=== PATIENT | male | born 1950 | race Caucasian/White ===

== ENCOUNTER 2017-02-02 13:59 | Emergency (ER) | payer BC ==
[2017-02-02] MEDS ORDERED: Adacel Vial IM ONE ×2 (14:23→14:26)
[2017-02-02] MEDS ORDERED: XYLOCAINE 1% HCL 20 ML MDV IJ ONE (14:23)
[2017-02-02] MEDS ORDERED: BACIGUENT PACKET TP ONE (14:23)
[2017-02-02] MEDS ORDERED: BACIGUENT PACKET ONE (14:26)
[2017-02-02] MEDS ORDERED: XYLOCAINE 1% HCL 20 ML MDV ONE (14:26)
--- NOTE | 2017-02-02 14:27 | ERPHSYRPT ---
- History of Present Illness Time Seen by Provider: 02/02/17 14:23 Source: patient Exam Limitations: no limitations Patient Subjective Stated Complaint: pt states he was working with a chop saw and lacerated left proximal 5th knuckle. Triage Nursing Assessment: pt pink, warm, dry. 3cm laceration noted to left proximal 5th knuckle. radial pulse strong. Physician History: 66-year-old white male arrives with a laceration to his left hand since just prior to arrival. Patient states he was using a chop saw and struck the dorsal surface of his left hand. He is not having any problems moving he has no sensory loss. Full range of motion left hand and fingers. Past medical history includes hypercholesterolemia, high blood pressure. Past surgical history includes orthopedic surgeries. Occurred: just prior to arrival Method of Injury: other (lacerated left hand with chop saw) Quality: sharpness Severity of Pain-Max: moderate Severity of Pain-Current: mild Extremities Pain Location: hand: left Modifying Factors: Improves With: nothing Associated Symptoms: none, other (laceration left hand) Allergies/Adverse Reactions: iodine Allergy (Mild, Verified 02/02/17 14:24) Hives Home Medications: Benazepril HCl 10 mg [Lotensin 10 MG] 1 tab PO DAILY 03/19/13 [History] Simvastatin 40 mg [Zocor 40 mg] 1 tab PO DAILY 03/19/13 [History] Aspirin 81 mg PO DAILY 01/19/15 [History] Amlodipine Besylate 5 mg [Norvasc 5 mg] 5 mg PO DAILY 01/21/15 [History] Ergocalciferol (Vitamin D2) [Vitamin D] 50,000 units PO DAILY 02/11/16 [History] Levothyroxine Sodium 50 Mcg [Synthroid 50 Mcg] 50 mcg PO DAILY 02/11/16 [ History] Tamsulosin HCl 0.4 mg [Flomax 0.4 MG] 0.4 mg PO DAILY 02/11/16 [History] Hx Tetanus, Diphtheria Vaccination/Date Given: Yes (unknown) Hx Influenza Vaccination/Date Given: No Hx Pneumococcal Vaccination/Date Given: No Immunizations Up to Date: Yes - Review of Systems Constitutional: No Fever, No Chills Eyes: No Symptoms Ears, Nose, & Throat: No Symptoms Respiratory: No Cough, No Dyspnea Cardiac: No Chest Pain, No Edema, No Syncope Abdominal/Gastrointestinal: No Abdominal Pain, No Nausea, No Vomiting, No Diarrhea Genitourinary Symptoms: No Dysuria Musculoskeletal: Other (laceration dorsal left hand) Skin: Other (laceration dorsal left hand) Neurological: No Dizziness, No Focal Weakness, No Sensory Changes Psychological: No Symptoms Endocrine: No Symptoms All Other Systems: Reviewed and Negative - Past Medical History Pertinent Past Medical History: Yes Neurological History: No Pertinent History ENT History: No Pertinent History Cardiac History: Hypertension Respiratory History: No Pertinent History Endocrine Medical History: Hypothyroidism Musculoskeletal History: No Pertinent History GI Medical History: No Pertinent History History: No Pertinent History Psycho-Social History: No Pertinent History Male Reproductive Disorders: No Pertinent History - Past Surgical History Past Surgical History: Yes Neuro Surgical History: No Pertinent History Cardiac: No Pertinent History Respiratory: No Pertinent History Gastrointestinal: Hernia Repair Genitourinary: No Pertinent History Musculoskeletal: Orthopedic Surgery Male Surgical History: No Pertinent History Other Surgical History: left knee(spouse not sure of procedure) yrs ago,Carpal tunnel release (spouse not sure which wrist) - Social History Smoking Status: Former smoker Exposure to second hand smoke: No Drug Use: none Patient Lives Alone: No - Nursing Vital Signs Nursing Vital Signs: Initial Vital Signs Temperature 98.9 F 02/02/17 14:18 Pulse Rate 72 02/02/17 14:18 Respiratory Rate 18 02/02/17 14:18 Blood Pressure 145/89 02/02/17 14:18 O2 Sat by Pulse Oximetry 96 02/02/17 14:18 Pain Scale Pain Intensity 0 - Physical Exam General Appearance: mild distress Eyes, Ears, Nose, Throat Exam: moist mucous membranes Neck Exam: non-tender, supple Cardiovascular/Respiratory Exam: chest non-tender, normal breath sounds, regular rate/rhythm, no respiratory distress Abdominal Exam: non-tender, No guarding Back Exam: normal inspection, No vertebral tenderness Shoulder Exam: normal inspection, non-tender, no evidence of injury, normal ROM Elbow/Forearm Exam: normal inspection, non-tender, no evidence of injury, normal ROM Wrist Exam: normal inspection, non-tender, no evidence of injury, normal ROM Hand Exam: normal ROM, No normal inspection (3 cm laceration dorsal left hand overlyin the fifth MCP joint, full range of motion all fingers good capillary refill all fingers sensation intact to all fingers, left radial ulnar pulse intact 2 /4) Neuro/Tendon Exam: normal sensation, normal motor functions Mental Status Exam: alert, oriented x 3, cooperative Skin Exam: normal color, warm, dry, laceration (3 cm laceration dorsal left hand overlying left fifth mcp joint MCP joint) SpO2 Interpretation: normal (96%) SpO2: 96 Oxygen Delivery: Room Air - Course Nursing assessment & vital signs reviewed: Yes - Radiology Exams Left Hand X-ray Interpretation: Discussed w/ radiologist (x-ray left hand: Small focus of soft tissue swelling/laceration adjacent to the fifth MCP. No other bony, articular, or soft tissue abnormalities) Ordered Tests: Active Orders 24 hr Category Date Time Status Prepare for Sutures STAT Care 02/02/17 14:23 Active Sutures STAT Care 02/02/17 14:23 Active Wound Care STAT Care 02/02/17 14:23 Active HAND (MINIMUM 3 VIEWS) Stat Exams 02/02/17 14:22 Completed Medication Summary Discontinued Medications Generic Name Dose Route Start Last Admin Trade Name Freq PRN Reason Stop Dose Admin Bacitracin 0.9 gm 02/02/17 14:23 02/02/17 14:53 Baciguent Packet TP 02/02/17 14:24 0.9 gm STAT ONE Administration Bacitracin Confirm 02/02/17 14:26 Baciguent Packet Administered 02/02/17 14:27 Dose 1 gm .ROUTE .STK-MED ONE Diphtheria/Tetanus/Acell Pertussis 0.5 ml 02/02/17 14:23 02/02/17 14:34 Adacel Vial IM 02/02/17 14:24 0.5 ml .ONCE ONE Administration Diphtheria/Tetanus/Acell Pertussis Confirm 02/02/17 14:26 Adacel Vial Administered 02/02/17 14:27 Dose 0.5 ml IM .STK-MED ONE Lidocaine HCl 5 ml 02/02/17 14:23 02/02/17 14:53 Xylocaine 1% Hcl 20 Ml Mdv IJ 02/02/17 14:24 5 ml STAT ONE Administration Lidocaine HCl Confirm 02/02/17 14:26 Xylocaine 1% Hcl 20 Ml Mdv Administered 02/02/17 14:27 Dose 1 ml .ROUTE .STK-MED ONE - Progress Progress: improved Progress Note: 02/02/17 15:04 3 cm laceration repair left hand Laceration sterilely prepped and draped Anesthetized with 1% lidocaine Sutured using 9 5. 0 interrupted Ethilon sutures Bacitracin and dressing applied Patient neurovascularly intact after repair 02/02/17 15:06 Patient's DTaP was updated - Departure Time of Disposition: 15:05 Departure Disposition: Home Clinical Impression: Laceration of hand Qualifiers: Encounter type: initial encounter Foreign body presence: without foreign body Laterality: left Qualified Code(s): S61.412A - Laceration without foreign body of left hand, initial encounter Condition: Fair Critical Care Time: No Referrals: MATTHEW INIGUEZ [Primary Care Provider] - Instructions: Care for a Laceration After Repair Additional Instructions: Return home. Keep area clean and dry. Bacitracin to area daily until healed. Sutures out 5-7 days. Keflex 500 mg orally 3 times a day for 7 days. Follow-up with your family doctor or return if signs of infection or problems. Return for acute distress or for severe symptoms. Prescriptions: Cephalexin Mh 500 mg [Keflex 500 mg] 500 mg PO TID #21 capsule
--- NOTE | 2017-02-02 14:48 | XRAY ---
Indication: Fifth MCP pain following injury. Comparison: None 3 views of the left hand demonstrates small focus of soft tissue swelling/laceration adjacent to the fifth MCP. No other bony, articular, or soft tissue abnormalities.
[2017-02-02 15:35] VITALS: BP 149/98; PULSE 60; O2SAT 94
== END 2017-02-02 15:38 | disposition home or self-care (01) ==
LOC: ED 13:59
DX: S61.412A Laceration without foreign body of left hand, initial encounter (principal); W27.8XXA Contact with other nonpowered hand tool, initial encounter
CPT/HCPCS: 73130; 90471; 90715; 96372; 99284; A9270-GY